=== PATIENT | female | born 1985 | race Caucasian/White ===

== ENCOUNTER 2017-01-25 13:06 | Inpatient (IN) | payer OTHER ==
[~2017-01-25] VITALS: Ht 167.6 cm; Wt 86.0 kg
[2017-01-25] VITALS (51 sets, daily range): BP systolic 88–155; BP diastolic 32–124; PULSE 72–149; RESP 18–20; TEMP 98–102.6
[~2017-01-25 13:06] MED LIST: CALC1TAB34 PO; CRANCAP2 PO; DENO60P SQ; FLUO40CA PO
[2017-01-25] MEDS ORDERED: LACTATED RINGER'S 1000 ML INJ 1,000 ML IV SCH (14:04)
[2017-01-25] MEDS ORDERED: LACTATED RINGER'S 1000 ML INJ 1,000 ML IV PRN (14:04)
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
[2017-01-25] MEDS ORDERED: OXYTOCIN 30 UNITS-500ML PREMIX 500 ML IV SCH ×2 (14:15→23:45)
[2017-01-25] MEDS ORDERED: CITRIC ACID-SODIUM CITRATE LIQ 30 ML UDC PO SCH (14:15)
[2017-01-25] MEDS ORDERED: MINERAL OIL 10 ML VIAL TOPICAL PRN (14:15)
[2017-01-25] MEDS ORDERED: LIDOCAINE HCL 1% 50 ML VIAL INFIL PRN (14:15)
[2017-01-25] MEDS ORDERED: PENICILLIN G POTASSIUM INJ 5,000,000 UNITS in SODIUM CHLORIDE 0.9% INJ 100 ML IV ONE (14:15)
[2017-01-25] MEDS ORDERED: LIDOCAINE HCL 1% 50 ML VIAL I-DERMAL PRN (14:15)
[2017-01-25] MEDS ORDERED: OXYTOCIN 30 UNITS-500ML PREMIX 500 ML IV ONE (14:15)
[2017-01-25] MEDS ORDERED: ONDANSETRON HCL 4 MG/2 ML VIAL IV PUSH PRN (14:15)
[2017-01-25] MEDS ORDERED: SODIUM CHLORID 0.9% 500 ML INJ 500 ML IV PRN (14:15)
[2017-01-25] MEDS ORDERED: SODIUM CHLOR 0.9% 1000 ML INJ 1,000 ML IV PRN (14:24)
[2017-01-25 15:46] LABS: AUTOMATED NEUTROPHIL # 12.1 TH/MM3 (1.8-7.7); BASOPHIL % 0.2 % (0.0-2.0); EOSINOPHIL % 0.2 % (0.0-4.0); HEMATOCRIT 37.4 % (35.0-46.0); HEMO FLAGS DIFF FINAL; LYMPH % 11.3 % (9.0-44.0); LYMPHOCYTE # 1.7 TH/MM3 (1.0-4.8); MEAN CELL VOLUME 92.1 FL (80.0-100.0); MEAN CORPUSCULAR HEMOGLOBIN 31.7 PG (27.0-34.0); MEAN CORPUSCULAR HGB CONC 34.4 % (32.0-36.0); MONO % 5.5 % (0.0-8.0); NEUT % 82.8 % (16.0-70.0); PLATELET COUNT 212 TH/MM3 (150-450); RED BLOOD COUNT 4.07 MIL/MM3 (4.00-5.30); RED CELL DISTRIBUTION WIDTH 13.1 % (11.6-17.2); WHITE BLOOD COUNT 14.6 TH/MM3 (4.0-11.0)
[2017-01-25] MEDS ORDERED: DIPHTH/TETANUS/ACEL PERTUSSIS (BOOSTER) 0.5 ML VIAL/PFS IM ONE (16:00)
[2017-01-25] MEDS ORDERED: MEASLES, MUMPS, RUBELLA VACCINE 0.5 ML VIAL SQ ONE (16:00)
[2017-01-25] MEDS ORDERED: PENICILLIN G POTASSIUM INJ 2,500,000 UNITS in SODIUM CHLORIDE 0.9% INJ 100 ML IV SCH (18:15)
[2017-01-25] MEDS ORDERED: fentaNYL 2MCG-BUPIV 0.125% INJ 100 ML ONE (18:26)
[2017-01-25 18:54] LABS: ANION GAP 11 MEQ/L (5-15); AST (GOT) 14 U/L (15-37); BICARBONATE 19.1 MEQ/L (21.0-32.0); BLOOD UREA NITROGEN 7 MG/DL (7-18); CHLORIDE 105 MEQ/L (98-107); GLOMERULAR FILTRATION RATE 120 ML/MIN (>89); POTASSIUM 3.7 MEQ/L (3.5-5.1); SODIUM (NA) 135 MEQ/L (136-145); URIC ACID 3.7 MG/DL (2.6-6.0)
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
[2017-01-25 18:55] LABS: ALT (GPT) 13 U/L (10-53)
[2017-01-25 18:57] LABS: ALKALINE PHOSPHATASE 185 U/L (45-117); TOTAL BILIRUBIN ADULT 0.2 MG/DL (0.2-1.0)
[2017-01-25] MEDS ORDERED: fentaNYL 2MCG-BUPIV 0.125% 100 ML EPIDURAL SCH (19:15)
[2017-01-25] MEDS ORDERED: NO SYSTEM NARCOTICS PRN (19:15)
[2017-01-25] MEDS ORDERED: ePHEDrine/NS 25 MG/5 ML SYR IV PUSH PRN (19:15)
[2017-01-25] MEDS ORDERED: DO NOT ADMINISTER ANTICOAGULANTS PRN (19:15)
[2017-01-25 22:30] LABS: BACTERIA, URINE RARE /hpf; BLOOD, URINE LARGE (NEG); COMMENT (UR) CULTURE INDICATED; CULTURE IF INDICATED CULTURE INDICATED; GLUCOSE,URINE NEG (NEG); KETONE, URINE NEG (NEG); MUCUS URINE FEW /lpf (OCC); NITRITE,URINE NEG (NEG); PH, URINE 6.5 (5.0-8.5); SQUAMOUS EPITHELIAL CELL URINE 11 /hpf (0-5); URINE COLOR YELLOW (YELLW/STRAW)
--- NOTE | 2017-01-25 23:37 | PD.OB.DELI ---
Weeks gestation: 39 (39.3) Gest age assessed date: Jan 25, 2017 Gest age assessed time: 18:52 Pt started active labor?: Yes Medical induction of labor?: No Artificial rupture of membrane: No Anesthesia: Epidural Episiotomy: None Vaginal Delivery: Normal Presentation: Occiput posterior Delayed cord clamping (45 sec): No : Female Delivery date: Jan 25, 2017 Delivery time: 23:08 One Minute : 7 Five Minute : 9 Weight: 3815g Placenta: Spontaneous delivery, Intact Laceration: 2 deg Repair: Chromic running Estimated blood loss: 300ml Additional Information meconium AnayaVeronica ferrer MD Jan 25, 2017 23:37
[2017-01-25] MEDS ORDERED: WITCH HAZEL 50%/GLYCERIN 12.5% 40 PAD JAR TOPICAL PRN (23:45)
[2017-01-25] MEDS ORDERED: ALUMINUM/MAGNESIUM/SIMETH 30 ML CUP PO PRN (23:45)
[2017-01-25] MEDS ORDERED: SODIUM CHLORIDE 0.9% FLUSH 10 ML FLUSH IV FLUSH PRN (23:45)
[2017-01-25] MEDS ORDERED: ONDANSETRON ODT 4 MG TAB PO PRN (23:45)
[2017-01-25] MEDS ORDERED: AMPICILLIN/SULBAC 3 GM/NS 100 ML IV SCH ×2 (23:45)
[2017-01-25] MEDS ORDERED: BENZOCAINE 20% TOPICAL SPRAY 60 ML CAN TOPICAL PRN (23:45)
[2017-01-25] MEDS ORDERED: ZOLPIDEM TARTRATE 5 MG TAB PO PRN (23:45)
[2017-01-26] VITALS (15 sets, daily range): BP systolic 108–158; BP diastolic 62–92; PULSE 100–120; RESP 17–18; TEMP 96.8–102.4
[2017-01-26] MEDS: ACETAMINOPHEN 325 MG TAB PO PRN ×3 (00:40→22:53)
[2017-01-26] MEDS: DOCUSATE SODIUM 50 MG/SENNA 8.6 MG TAB PO PRN ×2 (02:42→22:52)
[2017-01-26] MEDS: IBUPROFEN 800 MG TAB PO PRN ×3 (02:42→22:53)
[2017-01-26] MEDS ORDERED: AMPICILLIN-SULBACTAM INJ 3 GM VIAL IM SCH (06:00)
[2017-01-26] MEDS: AMPICILLIN/SULBAC 3 GM/NS 100 ML IV SCH ×6 (06:01→19:02)
[2017-01-26] MEDS ORDERED: SODIUM CHLORIDE 0.9% FLUSH 10 ML FLUSH IV FLUSH SCH (09:00)
--- NOTE | 2017-01-26 11:26 | HHI.OB ---
Subjective Post Day: 1 Remarks PPD#1, s/p ,doing well, in NICU for infection Objective Vitals/I&O Vital Signs Date Time Temp Pulse Resp B/P (MAP) Pulse Ox O2 Delivery O2 Flow Rate FiO2 01/26/17 07:30 98.4 100 18 118/84 (95) 01/26/17 03:14 97.8 105 18 108/74 (85) 01/26/17 01:46 120 113/67 (82) 01/26/17 01:35 18 01/26/17 01:31 115 158/86 (110) 01/26/17 01:11 99.6 18 01/26/17 01:00 109 119/69 (86) 01/26/17 00:53 17 01/26/17 00:45 116 132/71 (91) 01/26/17 00:30 18 01/26/17 00:30 101 126/62 (83) 01/26/17 00:15 114 01/26/17 00:15 126/65 (85) 01/26/17 00:11 102.4 01/26/17 00:00 119 116/92 (100) 01/25/17 23:45 110 123/76 (92) 01/25/17 23:39 102.6 18 01/25/17 23:30 109 126/63 (84) 01/25/17 23:16 109 01/25/17 23:16 120/72 (88) 01/25/17 23:00 149 135/83 (100) 01/25/17 22:50 135 01/25/17 22:46 117/62 (80) 01/25/17 21:46 134/106 (115) 01/25/17 21:46 18 01/25/17 21:28 18 01/25/17 21:15 100 102/72 (82) 01/25/17 21:00 18 01/25/17 20:58 99 113/76 (88) 01/25/17 20:45 100 125/70 (88) 01/25/17 20:32 89 114/63 (80) 01/25/17 20:30 72 144/114 (124) 01/25/17 20:15 87 134/71 (92) 01/25/17 20:00 18 01/25/17 20:00 97 120/72 (88) 01/25/17 19:46 115 141/70 (93) 01/25/17 19:30 83 121/71 (88) 01/25/17 19:17 89 01/25/17 19:17 116/77 (90) 01/25/17 19:15 98.6 01/25/17 19:14 18 01/25/17 19:10 93 01/25/17 19:09 145/91 (109) 01/25/17 19:05 81 01/25/17 19:03 128/66 (86) 01/25/17 18:57 91 113/58 (76) 01/25/17 18:40 85 01/25/17 18:30 89 140/80 (100) 01/25/17 18:15 82 138/94 (109) 01/25/17 18:00 98.0 01/25/17 18:00 88 152/84 (106) 01/25/17 17:45 88 145/89 (107) 01/25/17 17:30 87 146/84 (104) 01/25/17 17:15 82 145/90 (108) 01/25/17 17:00 82 127/93 (104) 01/25/17 16:46 92 104/82 (89) 01/25/17 16:34 89 148/83 (104) 01/25/17 16:30 89 150/101 (117) 01/25/17 16:16 88 142/89 (106) 01/25/17 16:15 98.1 20 01/25/17 16:01 135 116/90 (99) 01/25/17 15:45 97 141/95 (110) 01/25/17 15:30 92 155/97 (116) 01/25/17 15:20 91 121/96 (104) 01/25/17 15:19 100 150/124 (133) 01/25/17 15:16 99 88/32 (50) 01/25/17 15:00 97 121/78 (92) 01/25/17 14:46 100 93/74 (80) 01/25/17 14:43 95 136/85 (102) 01/25/17 14:00 98.1 20 01/25/17 13:45 113 124/83 (97) Intake & Output 01/26/17 01/26/17 06:59 18:59 Intake Total 1700 ml Balance 1700 ml Intake IV Total 1700 ml Objective Remarks GENERAL: Well-nourished, well-developed patient. CARDIOVASCULAR: Regular rate and rhythm without murmurs, gallops, or rubs. RESPIRATORY: Breath sounds equal bilaterally. No accessory muscle use. ABDOMEN/GI: Abdomen soft, non-tender. Fundus: Firm, non-tender at umbilicus. GENITOURINARY: Light to moderate bleeding. EXTREMITIES: No cyanosis or edema, non-tender, without signs of DVT. Medications and IVs Current Medications Medications (Trade) Dose Ordered Sig/Vaishali Route Start Time Stop Time Status Last Admin (NS Flush) 2 ml BID IV FLUSH 01/26/17 09:00 (NS Flush) 2 ml UNSCH PRN IV FLUSH 01/25/17 23:45 (Tylenol) 650 mg Q4H PRN PO 01/25/17 23:45 01/26/17 08:19 (Motrin) 800 mg Q8H PRN PO 01/25/17 23:45 01/26/17 02:42 (Americaine 20% Top Spr) 1 spray Q4H PRN TOPICAL 01/25/17 23:45 01/26/17 08:19 (Tucks Pads) 1 applic QID PRN TOPICAL 01/25/17 23:45 01/26/17 08:19 (Allie-Colace) 2 tab Q12H PRN PO 01/25/17 23:45 01/26/17 02:42 (Ambien) 5 mg HS PRN PO 01/25/17 23:45 (Mag-Al Plus Susp Liq) 15 ml Q8H PRN PO 01/25/17 23:45 (Zofran Odt) 4 mg Q6H PRN PO 01/25/17 23:45 Ampicillin Sodium/ Sulbactam Sodium 3 gm/Sodium Chloride 100 ml @ 200 mls/hr Q6H IV 01/26/17 06:00 01/26/17 06:01 Assessment/Plan Problem List: (1) Premature rupture of membranes ICD Codes: O42.90 - Premature rupture of membranes, unspecified as to length of time between rupture and onset of labor,unspecified weeks of gestation Status: Acute (2) 39 weeks gestation of ICD Codes: Z3A.39 - 39 weeks gestation of Status: Acute (3) Group beta Strep positive ICD Codes: B95.1 - Streptococcus, group B, as the cause of diseases classified elsewhere Status: Acute Assessment and Plan PPD#1, Stable, doing well, in NICU on antibiotics Discharge Planning Does not meet criteria Attending Attestation seen by Lenin Massey MD Jan 26, 2017 11:26
[2017-01-27] MEDS: AMPICILLIN/SULBAC 3 GM/NS 100 ML IV SCH ×4 (01:00→06:40)
[2017-01-27] MEDS: IBUPROFEN 800 MG TAB PO PRN (06:50)
[2017-01-27] MEDS: ACETAMINOPHEN 325 MG TAB PO PRN (06:51)
[2017-01-27 08:00] VITALS: BP 109/68; PULSE 80; RESP 16; TEMP 97.6
--- NOTE | 2017-01-27 12:27 | HHI.OB ---
Subjective Post Day: 2 Remarks Doing well baby in NICU for me to circ and then Peds nursing desired Objective Vitals/I&O Vital Signs Date Time Temp Pulse Resp B/P (MAP) Pulse Ox O2 Delivery O2 Flow Rate FiO2 01/27/17 08:00 97.6 80 16 109/68 (82) 01/26/17 22:32 98.0 01/26/17 22:31 96.8 103 18 124/62 (82) Objective Remarks GENERAL: Well-nourished, well-developed patient. CARDIOVASCULAR: Regular rate and rhythm without murmurs, gallops, or rubs. RESPIRATORY: Breath sounds equal bilaterally. No accessory muscle use. ABDOMEN/GI: Abdomen soft, non-tender. Fundus: Firm, non-tender at umbilicus. GENITOURINARY: Light to moderate bleeding. EXTREMITIES: No cyanosis or edema, non-tender, without signs of DVT. Medications and IVs Current Medications Medications (Trade) Dose Ordered Sig/Vaishali Route Start Time Stop Time Status Last Admin (NS Flush) 2 ml BID IV FLUSH 01/26/17 09:00 (NS Flush) 2 ml UNSCH PRN IV FLUSH 01/25/17 23:45 (Tylenol) 650 mg Q4H PRN PO 01/25/17 23:45 01/27/17 06:51 (Motrin) 800 mg Q8H PRN PO 01/25/17 23:45 01/27/17 06:50 (Americaine 20% Top Spr) 1 spray Q4H PRN TOPICAL 01/25/17 23:45 01/26/17 08:19 (Tucks Pads) 1 applic QID PRN TOPICAL 01/25/17 23:45 01/26/17 08:19 (Allie-Colace) 2 tab Q12H PRN PO 01/25/17 23:45 01/26/17 22:52 (Ambien) 5 mg HS PRN PO 01/25/17 23:45 (Mag-Al Plus Susp Liq) 15 ml Q8H PRN PO 01/25/17 23:45 (Zofran Odt) 4 mg Q6H PRN PO 01/25/17 23:45 Ampicillin Sodium/ Sulbactam Sodium 3 gm/Sodium Chloride 100 ml @ 200 mls/hr Q6H IV 01/26/17 06:00 12/14/17 06:40 Assessment/Plan Problem List: (1) Premature rupture of membranes ICD Codes: O42.90 - Premature rupture of membranes, unspecified as to length of time between rupture and onset of labor,unspecified weeks of gestation Status: Acute (2) 39 weeks gestation of ICD Codes: Z3A.39 - 39 weeks gestation of Status: Acute (3) Group beta Strep positive ICD Codes: B95.1 - Streptococcus, group B, as the cause of diseases classified elsewhere Status: Acute Assessment and Plan PPD#1, Stable, doing well, in NICU on antibiotics 01.27.17 PPD 2 doing well baby to be circed and parents counseled to stay close today Discharge Planning Does not meet criteria Shelly Hassan MD Jan 27, 2017 12:27
[2017-01-27] MEDS ORDERED: IBUP1TAB7 PO (12:29)
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
== END 2017-01-27 14:14 | disposition home or self-care (01) | DRG 775 ==
LOC: HOBED 13:06 → H2EA 14:00 → H1EA 01-26 02:20
PROVIDERS: ADMIT Obstetrics & Gynecology; ATTEND Obstetrics & Gynecology
PROC: 0KQM0ZZ Repair Perineum Muscle, Open Approach (ICD-10-PCS; principal; 2017-01-25)
PROC: 10E0XZZ Delivery of Products of Conception, External Approach (ICD-10-PCS; 2017-01-25)
PROC: 10907ZC Drainage of Amniotic Fluid, Therapeutic from Products of Conception, Via Natural or Artificial Opening (ICD-10-PCS; 2017-01-25)
DX: O42.92 Full-term premature rupture of membranes, unspecified as to length of time between rupture and onset of labor (principal); O99.344 Other mental disorders complicating childbirth; O99.824 Streptococcus B carrier state complicating childbirth; O99.334 Smoking (tobacco) complicating childbirth; O77.0 Labor and delivery complicated by meconium in amniotic fluid; F43.10 Post-traumatic stress disorder, unspecified; O70.9 Perineal laceration during delivery, unspecified; F17.210 Nicotine dependence, cigarettes, uncomplicated; Z3A.39 39 weeks gestation of pregnancy; Z37.0 Single live birth
CPT/HCPCS: 59025; 80053; 80307; 81001; 84550; 85025; 85461; 86592; 86850; 86900; 86901; 87086; 90384; 90715; J0295; J2540; J2590; J2790; J3010; J7120